=== PATIENT | female | born 1965 | race Caucasian/White ===

== ENCOUNTER 2016-12-10 11:59 | Outpatient (CLI) | payer MEDICARE ==
[2016-12-15 11:57] LABS: TREPONEMA AB IGG NEGATIVE (())
== END 2016-12-10 12:00 | disposition home or self-care (01) ==
LOC: LAB 11:59
PROVIDERS: ATTEND Internal Medicine
DX: A64 Unspecified sexually transmitted disease (principal)
CPT/HCPCS: 36415; 80074; 86780; 87341; 87491; 87591; G0475; 87389